=== PATIENT | female | born 1970 | race Caucasian/White ===

== ENCOUNTER 2021-10-26 09:28 | Emergency (ER) | payer MEDICAID, SELFPAY ==
[2021-10-26 09:31] VITALS: BP 107/86; PULSE 96; RESP 18; TEMP 36.8; O2SAT 99
[2021-10-26 10:16] LABS: Abs Immature Grans 0.01 10^3/uL (0.0-0.06); Absolute Basophil Count 0.01 10^3/uL (0.0-0.2); Absolute Eosinophil Count 0.03 10^3/uL (0.0-0.7); Absolute Lymphocyte Count 0.51 10^3/uL (1.2-3.4); Absolute Monocyte Count 0.43 10^3/uL (0.1-0.8); Absolute Neutrophil Count 4.23 10^3/uL (1.2-6.7); Basophils % 0.2; Eosinophils % 0.6; HCT 39.7 % (36.0-46.0); HGB 13.4 g/dL (11.2-15.7); Immature Grans % 0.2; Lymphocytes % 9.8; MCH 30.5 pg (27.0-33.0); MCHC 33.8 % (32.0-36.0); MCV 90 fL (80-95); MPV 11.1 fL (8.0-11.0); Monocytes % 8.2; Platelet Count 155 10^3/uL (130-400); RDW 12.4 % (11.7-14.6); RDW-SD 40.8 fL; WBC 5.22 10^3/uL (4.4-10.8)
[2021-10-26 10:31] LABS: ALT 24 U/L (14-59); AST 18 U/L (15-37); Albumin 3.6 g/dL (3.4-5.0); Alkaline Phosphatase 51 U/L (46-116); Anion Gap 5.9 mmol/L (3-11); BUN 9 mg/dL (7-18); Bilirubin, Total 0.6 mg/dL (0.2-1.0); CO2 27.1 mmol/L (21.0-32.0); CREATININE 0.8 mg/dL (0.55-1.02); Calcium 8.5 mg/dL (8.5-10.1); Chloride 104 mmol/L (98-107); Glucose 116 mg/dL (74-106); Potassium 3.8 mmol/L (3.5-5.1); Sodium 137 mmol/L (136-145); Total Protein 6.9 g/dL (6.4-8.2)
--- NOTE | 2021-10-26 10:36 | W.ED.GENAD ---
Discharge Plan Disposition Patient Disposition: HOME Condition: Stable Discharge Details Clinical Impression: Rash Primary Care Provider: DESTINI RAO ED Provider: Yuly Gonzales Home Meds and New Rx's Prescriptions: New doxycycline hyclate 100 mg tablet 100 mg PO BID 10 Days Qty: 20 0RF Discharge Instructions Instructions: Acute Rash (ED) Additional Instructions: I suspect this is an erythema migrans rash consistent with Lyme infection, however your Lyme results likely will be back for 72 hours We will notify you regarding the results if it is positive you have been prescribed doxycycline which will treat both for a bacterial cellulitis and erythema migrans rash Please return should you have new or worsening complaints Referrals: DESTINI RAO, MATERIAL INSPECTOR [Primary Care Provider] - Discharge Data Discharge Date/Time-TO BE ENTERED AT DEPARTURE: 10/26/21 11:06 Medical Decision Making Patient has what appears to be an erythema migrans rash, however cannot exclude cellulitis No evidence of shingles clinically Will place on doxycycline empirically which will treat both cellulitis and Lyme disease Tick panel pending Afebrile and nontoxic in appearance Will take ibuprofen and Tylenol for pain Return precautions discussed and patient expressed understanding Medical Records Medical records reviewed: Yes I reviewed the patient's medical records. Lab Data Lab results reviewed: Yes I reviewed the patient's lab results. HPI General Date/Time Provider Initiated Documentation: 10/26/21 09:40. HPI Narrative: This 51-year-old female presents with report of rash on back that began on . Denies known insect bite. Denies known tick bites. pt reports chills without fever.. States the site is tender. States it has evolved in the past 24 hours to include a ring around the site and is itchy surrounding the lesion. Sensitive to the touch reportedly. Denies history of similar symptoms in the past. Related Data Home Medications Medication Instructions Recorded Confirmed doxycycline hyclate 100 mg tablet 100 mg PO BID 10 days #20 tabs 10/26/21 Previous Rx's Medication Instructions Recorded doxycycline hyclate 100 mg tablet 100 mg PO BID 10 days #20 tabs 10/26/21 Allergies Allergy/AdvReac Type Severity Reaction Status Date / Time No Known Allergies Allergy Unverified 10/26/21 09:35 General Stated Complaint: Cellulitis JOSE: 4 Review of Systems All systems reviewed & are unremarkable except as noted in HPI and below PFSH All Active Problems (Updated 10/26/21 @ 10:44 by DENISA Varela) Rash (Acute) Social History Smoking/Tobacco Use Status: Never Smoking risk assessment performed?: Yes Alcohol Intake: never Drug use: Never Substance use type: does not use Do you feel safe at home: Yes Do you feel safe in your relationship?: Yes Exam Const General: cooperative, comfortable and no acute distress HENMT Head: normal to inspection Chest Chest: normal inspection of the chest Resp Effort & Inspection: normal respiratory effort Cardio Rate: regular rate Skin Full body images: 1. Bull's-eye lesion noted with central vesicle, tenderness to palpation, no crepitus, no drainage, no fluctuance, no lymphangitis Neuro General: patient alert and patient oriented x3 Course Vital Signs Vital signs: Vital Signs Temperature 36.8 C 10/26/21 09:31 Pulse 96 H 10/26/21 09:31 Respiratory Rate 18 10/26/21 09:31 Blood Pressure 107/86 10/26/21 09:31 Pulse Oximetry 99 10/26/21 09:31 Temperature 36.8 C 10/26/21 09:31 Temperature Source Temporal Artery Scan 10/26/21 09:31 Pulse 96 H 10/26/21 09:31 Respiratory Rate 18 10/26/21 09:31 Respiratory Effort 10/26/21 09:35 Blood Pressure 107/86 10/26/21 09:31 Blood Pressure Position Sitting 10/26/21 09:31 Pulse Oximetry 99 10/26/21 09:31 Oxygen Delivery Method Room Air 10/26/21 09:31 Oxygen Flow Rate 0 10/26/21 09:31 Pain Level 2 10/26/21 09:31 Lab/Test Results Lab/Test Results: Laboratory Tests Range/Units 10/26/21 10/26/21 10:05 10:05 WBC (4.4-10.8) 10^3/uL 5.22 RBC (3.93-5.22) 10^6/uL 4.40 Hgb (11.2-15.7) g/dL 13.4 Hct (36.0-46.0) % 39.7 MCV (80-95) fL 90 MCH (27.0-33.0) pg 30.5 MCHC (32.0-36.0) % 33.8 RDW (11.7-14.6) % 12.4 Plt Count (130-400) 10^3/uL 155 MPV (8.0-11.0) fL 11.1 H Immature Gran % 0.2 Neutrophils % 81.0 Lymphocytes % 9.8 Monocytes % 8.2 Eosinophils % 0.6 Basophils % 0.2 Nucleated RBC % (0.0-0.3) % 0.0 Absolute Neutrophils (1.2-6.7) 10^3/uL 4.23 Absolute Lymphocytes (1.2-3.4) 10^3/uL 0.51 L Absolute Monocytes (0.1-0.8) 10^3/uL 0.43 Absolute Eosinophils (0.0-0.7) 10^3/uL 0.03 Absolute Basophils (0.0-0.2) 10^3/uL 0.01 Sodium (136-145) mmol/L 137 Potassium (3.5-5.1) mmol/L 3.8 Chloride (98-107) mmol/L 104 Carbon Dioxide (21.0-32.0) mmol/L 27.1 Anion Gap (3-11) mmol/L 5.9 BUN (7-18) mg/dL 9 Creatinine (0.55-1.02) mg/dL 0.8 Estimated GFR/1.73 m2 (mL/min/1.73m2) >= 60.00 Glucose (74-106) mg/dL 116 H Calcium (8.5-10.1) mg/dL 8.5 Total Bilirubin (0.2-1.0) mg/dL 0.6 AST (15-37) U/L 18 ALT (14-59) U/L 24 Alkaline Phosphatase (46-116) U/L 51 Total Protein (6.4-8.2) g/dL 6.9 Albumin (3.4-5.0) g/dL 3.6
[2021-10-28 11:58] LABS: Lyme Ab w Rflx to Lyme Confirm Negative (Negative)
[2021-11-01 17:03] LABS: Anaplasma phagocytophilum Negative (Negative); B. miyamotoi PCR Negative (Negative); Babesia divergens/MO-1 Negative (Negative); Babesia duncani Negative (Negative); Babesia microti Negative (Negative); Ehrlichia chaffeensis Negative (Negative); Ehrlichia ewingii/canis Negative (Negative); Ehrlichia muris eauclairensis Negative (Negative)
== END 2021-10-26 11:06 | disposition home or self-care (01) ==
PROVIDERS: Emergency Provider Physician Assistant; PCP Nurse Practitioner Family
DX: R21 Rash and other nonspecific skin eruption (principal); L98.9 Disorder of the skin and subcutaneous tissue, unspecified
CPT/HCPCS: 36415; 80053; 87798; 99283; 85025; 86618; 99284

== ENCOUNTER 2022-01-05 17:33 | Emergency (ER) | payer MEDICAID, SELFPAY ==
[2022-01-05 18:32] VITALS: BP 118/69; PULSE 78; RESP 22; TEMP 36.9; O2SAT 100
--- NOTE | 2022-01-05 19:00 | DI.RAD_ITS ---
Exam(s) XR LUMBAR SPINE COMPLETE EXAM: XR LUMBAR SPINE COMPLETE CLINICAL HISTORY: lower back pain. TECHNIQUE: 2D digital imaging was performed. Five views. COMPARISON: No exams were available for comparison FINDINGS: BONES: No fracture or destructive lesion. Vertebral body heights are maintained. No facet hypertroph y identified. DISKS: [id number] narrowing of the L5-S1 disc space. Minimal endplate osteophytes. Interverte bral disc spaces are maintained. ALIGNMENT: Lumbar spinal alignment is within normal limits. SOFT TISSUE: Normal. IMPRESSION: Degenerative changes L5-S1. DATA REPOSITORY: RADIATION DOSE DELIVERED:
--- NOTE | 2022-01-05 19:00 | DI.RAD_ITS ---
Exam(s) XR HIP LT COMPLETE AP PELVIS EXAM: XR HIP LT COMPLETE AP PELVIS CLINICAL HISTORY: left hip pain. TECHNIQUE: 2D digital imaging was performed. Two views. COMPARISON: No exams were available for comparison FINDINGS: BONES: No acute fracture is present. No bony destructive lesion is seen. JOINTS: No dislocation present. SOFT TISSUE: Normal. IMPRESSION: Unremarkable radiographs of the left hip. Unremarkable radiographs of the pelvis DATA REPOSITORY: RADIATION DOSE DELIVERED:
--- NOTE | 2022-01-05 19:07 | ED.GENADUL_ITS ---
Discharge Plan Disposition Patient Disposition: STILL A PATIENT Condition: Stable Discharge Details Clinical Impression: Lumbar back pain, Hip pain, left Primary Care Provider: DESTINI RAO ED Provider: Juni Page Home Meds and New Rx's Prescriptions: New prednisone 20 mg tablet 60 mg PO DAILY 4 Days Qty: 12 0RF diazepam [Valium] 5 mg tablet 5 mg PO TID PRN (Reason: muscle spasm) Qty: 14 0RF Discharge Instructions Instructions: Hip Pain (ED) Additional Instructions: if pain continues this week follow up with your primary care provider if you feel more ill, have fevers or severe worsening pain return to the emergency department for reevaluation you can take tylenol and ibuprofen, follow dosing instructions on packaging Medical Decision Making 51 yo female who denies chronic medical problems comes in with left hip pain. She states last week she had lower back pain after she was chopping wood and denies any falls or trauma. The pain in her back subsided but then she developed left hip pain that has been persistent. no fevers, chills, difficulty urinating. She has no lower back pain now. She localizes the pain to the left lateral hip. She can move the hip though with pain. No erythema, warmth of the hip. Normal distal senation , normal pulses and sensation. Suspect this could be bursitis vs arthritis vs muscle spasm, will treat with valium, prednisone and toradol and obtain xrays to further evaluate pt signed out to oncoming provider pending xrays and reassessment after being medicated Differential Diagnosis Differential Diagnosis: bursitis, arthritis, pathological fracture HPI General Mode of arrival: ambulatory . Date/Time Provider Initiated Documentation: 01/05/22 18:58 . Limitations to Documentation: no limitations . Information obtained by: patient . History of Present Illness 51 year old F presents to the emergency department with the chief complaint of left hip pain, described as moderate, Patient started experiencing this day(s) (3) and it has been constant. Rest improves symptom(s), Movement worsens symptoms . Patient notes no other symptoms.. Patient did receive the following treatments prior to arrival, none Related Data Home Medications Medication Instructions Recorded Confirmed diazepam 5 mg tablet (Valium) 5 mg PO TID PRN muscle spasm #14 01/05/22 tabs prednisone 20 mg tablet 60 mg PO DAILY 4 days #12 tabs 01/05/22 Previous Rx's Medication Instructions Recorded diazepam 5 mg tablet (Valium) 5 mg PO TID PRN muscle spasm #14 01/05/22 tabs prednisone 20 mg tablet 60 mg PO DAILY 4 days #12 tabs 01/05/22 Allergies Allergy/AdvReac Type Severity Reaction Status Date / Time No Known Allergies Allergy Unverified 10/26/21 09:35 General Stated Complaint: Orthopedic JOSE: 3 Review of Systems All systems reviewed & are unremarkable except as noted in HPI and below Constitutional Constitutional: Denies chills, Denies fever(s) and Denies weakness Cardiovascular Cardiovascular: Denies chest pain and Denies dyspnea Respiratory Respiratory: Denies cough and Denies dyspnea Gastrointestinal Gastrointestinal: Denies abdominal pain, Denies nausea and Denies vomiting Integumentary/Breasts Skin/Breast: Denies rash Neurologic Neurologic: Denies weakness PFSH All Active Problems (Updated 01/05/22 @ 19:42 by Juni Page MD) Lumbar back pain (Acute) Hip pain, left (Acute) Social History Smoking/Tobacco Use Status: Never Smoking risk assessment performed?: Yes Alcohol Intake: never Drug use: Never Substance use type: does not use Do you feel safe at home: Yes Do you feel safe in your relationship?: Yes Exam Const General: no acute distress Orientation: alert HENMT Head: normal to inspection Ears: external ears normal General nose exam: external nose normal Mouth: moist mucous membranes Eyes General: appearance normal, both eyes and all related structures Neck Neck: normal visual inspection Resp Effort & Inspection: normal respiratory effort and able to speak in complete s entences Cardio Rate: regular rate GI Palpation: soft Skin General skin exam: no rashes or lesions noted Neuro General: patient alert and patient oriented x3 Extrem General: normal to inspection Psych Mental Status: mental status grossly normal Course Vital Signs Vital signs: Vital Signs Temperature 36.9 C 01/05/22 18:32 Pulse 78 01/05/22 18:32 Respiratory Rate 22 01/05/22 18:32 Blood Pressure 118/69 01/05/22 18:32 Pulse Oximetry 100 01/05/22 18:32 Temperature 36.9 C 01/05/22 18:32 Pulse 78 01/05/22 18:32 Respiratory Rate 22 01/05/22 18:32 Blood Pressure 118/69 01/05/22 18:32 Blood Pressure Position Supine 01/05/22 18:32 Pulse Oximetry 100 01/05/22 18:32 Oxygen Delivery Method Room Air 01/05/22 18:32 Oxygen Flow Rate 0 01/05/22 18:32 Pain Level 8 01/05/22 18:32 Sign Out Sign Out Data: Sign Out Comment: nontraumatic lower back pain that has moved to the left hip, pending xrays and reassessment after valium, prednisone, toradol Last updated by Juni Page MD at 01/05/22 19:39
[2022-01-05] MEDS: predniSONE 20 MG TAB 60 MG PO (19:25)
[2022-01-05] MEDS: Ketorolac 15 MG/ML VIAL IM (19:27)
[2022-01-05] MEDS: diazePAM 10 MG/2 ML SYR 5 MG IM (19:35)
--- NOTE | 2022-01-05 20:05 | DI.VRAD_ITS ---
PROCEDURE INFORMATION: Exam: XR Lumbosacral Spine Exam date and time: 01/05/2022 7:40 PM Age: 51 years old Clinical indication: Low back pain TECHNIQUE: Imaging protocol: Radiologic exam of the lumbosacral spine. Views: 4 or 5 views. COMPARISON: No relevant prior studies available. FINDINGS: Bones/joints: No acute fracture. Normal alignment. Foraminal stenosis at L5-S1 Soft tissues: Unremarkable. IMPRESSION: No acute findings. Foraminal stenosis at L5-S1 Dictated and Authenticated by: Leonel Mcclain MD. Ordering:TIM Alfredo MD
--- NOTE | 2022-01-05 20:05 | DI.VRAD_ITS ---
PROCEDURE INFORMATION: Exam: XR Left Hip Exam date and time: 01/05/2022 7:44 PM Age: 51 years old Clinical indication: Hip pain; Left hip TECHNIQUE: Imaging protocol: Radiologic exam of the Left hip. Views: 2 or 3 views hip with pelvis when performed. COMPARISON: CR XR LUMBAR SPINE COMPLETE 01/05/2022 7:40 PM FINDINGS: Bones/joints: Mild degenerative changes in the left hip. No acute fracture. Soft tissues: Unremarkable. IMPRESSION: No acute findings. Mild degenerative changes in the left hip Dictated and Authenticated by: Leonel Mcclain MD. Ordering:TIM Alfredo MD
--- NOTE | 2022-01-05 20:25 | W.EDPROG ---
Date of service: 01/05/22 Time of Service: 20:30 Medical Decision Making 2029 --please see Dr. Page's note for initial presentation, exam and plan. Case endorsed to follow-up on imaging and if negative will plan for discharge to home. 51-year-old female plan presents with left-sided lower back and now left hip pain for the past 2 days after chopping wood. Pain is worse with movement, specifically bending and ambulating. She states her pain was in her left lower back which has since improved and is now on her left hip. She denies any bowel or bladder incontinence or saddle anesthesia. She does admit to radiation of pain to her left thigh with pressure-like tingling. She has been taking 800 mg of ibuprofen without significant relief. Imaging reviewed and negative. Patient reassessed and her pain is not significantly improved but she feels comfortable going home. She is moving all extremities. She has no focal deficits. She has no complaint of cauda equina symptoms. Discussed that her symptom presentation can be secondary to muscle strain, radiculopathy, sciatica, arthritis or less likely disc herniation. History and presentation does not appear consistent with cauda equina syndrome. Advised to alternate Tylenol and Motrin, ice and heat, take steroids until finished and Valium as needed. Advised to call her PCP this week for follow-up and referral for physical therapy or orthopedics if needed. Usual and customary return precautions given prior to discharge. Medical Records Medical records reviewed: Yes I reviewed the patient's medical records. Imaging Data Radiologic Study: Radiologist's impression: XR Left Hip Exam date and time: 01/05/2022 7:44 PM Age: 51 years old Clinical indication: Hip pain; Left hip TECHNIQUE: Imaging protocol: Radiologic exam of the Left hip. Views: 2 or 3 views hip with pelvis when performed. COMPARISON: CR XR LUMBAR SPINE COMPLETE 01/05/2022 7:40 PM FINDINGS: Bones/joints:? Mild degenerative changes in the left hip. No acute fracture. Soft tissues: Unremarkable. IMPRESSION: No acute findings. Mild degenerative changes in the left hip XR Lumbosacral Spine Exam date and time: 01/05/2022 7:40 PM Age: 51 years old Clinical indication: Low back pain TECHNIQUE: Imaging protocol: Radiologic exam of the lumbosacral spine. Views: 4 or 5 views. COMPARISON: No relevant prior studies available. FINDINGS: Bones/joints: No acute fracture. Normal alignment.? Foraminal stenosis at L5-S1 Soft tissues: Unremarkable. IMPRESSION: No acute findings. Foraminal stenosis at L5-S1 Exam Const General: cooperative, healthy appearing and no acute distress Orientation: alert, awake and oriented x3 HENMT Head: normal to inspection Mouth: oral mucosae normal Eyes General: appearance normal, both eyes and all related structures Neck Neck: normal visual inspection Resp Effort & Inspection: normal respiratory effort and able to speak in complete sentences Cardio Rate: regular rate Back/Spine/Pelvis Thoracic/Lumbar Spine: thoracic and lumbar spine normal to inspection, straight leg raise negative bilaterally and No lumbar spinal tenderness Skin General skin exam: no rashes or lesions noted Neuro General: patient alert, patient awake and patient oriented x3 Motor: muscle tone normal throughout and strength 5/5 throughout Extrem General: normal to inspection, full ROM and no edema Other: Bilateral DP/PT pulses intact. Psych Appearance: grossly normal Affect: normal affect Sign Out Sign Out Data: Sign Out Comment: nontraumatic lower back pain that has moved to the left hip, pending xrays and reassessment after valium, prednisone, toradol Last updated by Juni Page MD at 01/05/22 19:39 Discharge Plan Disposition Patient Disposition: HOME Condition: Stable Discharge Details Clinical Impression: Lumbar back pain, Hip pain, left Primary Care Provider: DESTINI RAO ED Provider: Marcella Eng Home Meds and New Rx's Prescriptions: New prednisone 20 mg tablet 60 mg PO DAILY 4 Days Qty: 12 0RF diazepam [Valium] 5 mg tablet 5 mg PO TID PRN (Reason: muscle spasm) Qty: 14 0RF Discharge Instructions Instructions: Low Back Strain (ED), Hip Pain (ED) Additional Instructions: Your x-rays today are reassuring and show no evidence of acute concerning or significant findings. Alternate ice and heat to the affected area(s) several times daily for 20 minutes at a time. Alternate tylenol and motrin as needed and directed for pain. You were given a prescription for prednisone to take as directed until finished. You are also given a prescription for Valium to take as needed and directed for muscle spasm and pain. Call your primary care doctor's office tomorrow to schedule follow-up appointment for reevaluation this week and for referral to orthopedics or physical therapy if needed. Return immediately to the emergency department if you develop any worsening or new concerning symptoms such as worsening pain, bowel or bladder incontinence, difficulty ambulating or any other concerns. Discharge Data Discharge Date/Time-TO BE ENTERED AT DEPARTURE: 01/05/22 20:59 Discharge Physician: Marcella Eng
[2022-01-05 21:00] VITALS: BP 113/71; PULSE 83; RESP 16; O2SAT 96
== END 2022-01-05 20:59 | disposition home or self-care (01) ==
PROVIDERS: Emergency Provider Physician Assistant; PCP Nurse Practitioner Family
DX: M25.552 Pain in left hip (principal); M54.50 Low back pain, unspecified
CPT/HCPCS: 96372; 99284; 72110; 73502; J1885; J3360; J7512

== ENCOUNTER 2022-05-05 12:09 | Outpatient (REF) | payer MEDICAID, SELFPAY ==
[2022-05-05 15:03] LABS: Bacteria Negative HPF (Negative); C & S Indicated? C&S Done As Ordered; Casts Negative LPF (Negative); Crystals Negative HPF (Negative); Epithelial Cells Rare HPF (Negative); Mucus Negative (Negative); RBC 0-2 HPF (0-2); WBC Negative HPF (0-5)
== END 2022-05-05 12:10 | disposition home or self-care (01) ==
LOC: LBN 12:09
PROVIDERS: PCP Nurse Practitioner Family; Visit Provider Nurse Practitioner Family
DX: R35.0 Frequency of micturition (principal)
CPT/HCPCS: 81015; 87086

== ENCOUNTER 2022-05-09 17:59 | Outpatient (REF) | payer MEDICAID, SELFPAY ==
[2022-05-09 14:27] LABS: Abs Immature Grans 0.01 10^3/uL (0.0-0.06); Absolute Basophil Count 0.05 10^3/uL (0.0-0.2); Absolute Eosinophil Count 0.12 10^3/uL (0.0-0.7); Absolute Lymphocyte Count 1.32 10^3/uL (1.2-3.4); Absolute Monocyte Count 0.46 10^3/uL (0.1-0.8); Absolute Neutrophil Count 3.54 10^3/uL (1.2-6.7); Basophils % 0.9; Eosinophils % 2.2; HCT 41.9 % (36.0-46.0); Immature Grans % 0.2; MCH 30.4 pg (27.0-33.0); MCHC 33.4 % (32.0-36.0); MCV 91 fL (80-95); Monocytes % 8.4; Neutrophils % 64.3; Platelet Count 209 10^3/uL (130-400); RDW 12.2 % (11.7-14.6); RDW-SD 40.7 fL
[2022-05-09 14:30] LABS: Anion Gap 6.7 mmol/L (3-11); BUN 11 mg/dL (7-18); CO2 29.3 mmol/L (21.0-32.0); CREATININE 0.7 mg/dL (0.55-1.02); Calcium 9.3 mg/dL (8.5-10.1); Chloride 104 mmol/L (98-107); Estimated GFR 105.95 (mL/min/1.73m2); Glucose 87 mg/dL (74-106); Potassium 4.5 mmol/L (3.5-5.1); Sodium 140 mmol/L (136-145)
[2022-05-10 14:30] LABS: Chlamydia Result Negative (Negative); GC Result Negative (Negative)
== END 2022-05-09 18:00 | disposition home or self-care (01) ==
LOC: LBN 17:59
PROVIDERS: PCP Nurse Practitioner Family; Visit Provider Physician Assistant Medical
DX: R30.0 Dysuria (principal); N89.8 Other specified noninflammatory disorders of vagina; R35.0 Frequency of micturition
CPT/HCPCS: 80048; 87491; 87591; 85025; 87086; 87480; 87510; 87660

== ENCOUNTER 2022-06-02 13:43 | Outpatient (REF) | payer MEDICAID, SELFPAY ==
[2022-06-03 10:17] LABS: Lyme Ab w Rflx to Lyme Confirm Negative (Negative)
== END 2022-06-02 13:44 | disposition home or self-care (01) ==
LOC: NCHCN 13:43
PROVIDERS: PCP Nurse Practitioner Family; Visit Provider Nurse Practitioner Family
DX: M25.59 Pain in other specified joint (principal); Z11.8 Encounter for screening for other infectious and parasitic diseases
CPT/HCPCS: 86618

== ENCOUNTER 2022-06-30 16:13 | Outpatient (REF) | payer MEDICAID, SELFPAY | END 2022-06-30 16:14 | disposition home or self-care (01) | LOC: NCHCN 16:13 | PROVIDERS: PCP Nurse Practitioner Family; Visit Provider Nurse Practitioner Family | DX: R35.0 Frequency of micturition (principal) | CPT/HCPCS: 87086 ==

== ENCOUNTER 2022-07-08 01:54 | Outpatient (CLI) | payer MEDICAID, SELFPAY ==
--- NOTE | 2022-07-08 07:00 | DI.US_ITS ---
Exam(s) US RENAL EXAM: US RENAL CLINICAL HISTORY: URINARY FREQUENCY, R35.0. TECHNIQUE: López scale, color and spectral Doppler were used. COMPARISON: No exams were available for comparison FINDINGS: Renal size in cm: Right: 11.6 left: 10.6 Echogenicity: Normal Hydronephrosis: No Cyst or mass: No Nephrolithiasis: No Bladder:Not well distended. Both ureteral jets visualized. Prevoid vol:22 Postvoid vol:4 IMPRESSION: Urinary bladder not well distended for pre void bladder volume. Wall not well evaluated. DATA REPOSITORY:
== END 2022-07-08 02:14 ==
LOC: DI 01:55
PROVIDERS: PCP Nurse Practitioner Family; Visit Provider Nurse Practitioner Family
DX: R35.0 Frequency of micturition (principal)
CPT/HCPCS: 76770

== ENCOUNTER 2022-07-11 00:47 | Outpatient (CLI) | payer MEDICAID, SELFPAY ==
--- NOTE | 2022-07-11 | DI.MAMMO_ITS ---
Exam(s) MAMMO SCREENING EXAM: MAMMO SCREENING CLINICAL HISTORY: SCREENING FOR BREAST CANCER Z12.39. TECHNIQUE: Bilateral full field digital CC and MLO mammographic images were obtained with 3D tomosyn thesis and utilizing computer aided detection (CAD). COMPARISON: Prior outside mammograms were reviewed. FINDINGS: Fibroglandular tissue pattern is again noted be moderately dense, this decreasing the sensitivity of the mammogram for finding hidden underlying lesions. No new findings in the immediate vicinity of the biopsy marker clip in the right breast. There are no new spiculated masses nor malignant appearing microcalcification groups in either breast . There is no significant architectural distortion nor skin thickening-retraction. IMPRESSION: No radiographic evidence of malignancy. BI-RADS Category 2 - Benign Findings Breast Density - Category C - Heterogeneously dense Breast density Category C or D implies that the patient has dense breast tissue. Dense breast tissue can make it harder to find cancer on a mammogram. Dense breast tissue is also associated with an incr eased risk of breast cancer. This information about the result of the mammogram report was provided to the patient to raise their awareness. Use this report when you speak with the patient about their risks for breast cancer, which includes their family history. At that time, you may recommend additional screening tests (Ultrasoun d or MRI) as these tests may add significant information. A negative radiographic report should not delay biopsy if a dominant or clinically suspicious mass is present. Up to ten percent of cancers are not identified on mammography. A negative report may reinforce clinical impression. Adenosis and dense breasts may obscure an underlying neoplasm. False positive reports average 6 to 10%. Patient will receive a letter notifying them of these results.
== END 2022-07-11 01:07 ==
LOC: DI 00:47
PROVIDERS: PCP Nurse Practitioner Family; Visit Provider Nurse Practitioner Family
DX: Z12.31 Encounter for screening mammogram for malignant neoplasm of breast (principal)
CPT/HCPCS: 77063; 77067

== ENCOUNTER 2022-10-15 01:41 | Outpatient (CLI) | payer MEDICAID, SELFPAY ==
--- NOTE | 2022-10-15 07:45 | DI.MRI_ITS ---
Exam(s) MR LUMBAR SPINE WO EXAM: MR LUMBAR SPINE WO CLINICAL HISTORY: LUMBAR BACK PAIN, M54.50; LUMBAR DISC DEGENERATION AT L5-S1 ON XR, M51.36. TECHNIQUE: Multiplanar multisequence MRI of the Lumbar spine was performed. COMPARISON: CR,XR XR LUMBAR SPINE COMPLETE from 01/05/2022 FINDINGS: Conus medullaris is at normal level. There is no evidence of conus mass nor subjacent clumping of in trathecal nerve roots to suggest arachnoiditis. The distal thecal sac appears unremarkable.Small Tar tomy intra sacral cyst seen on the right side at S2 level. Not clinically relevant. Bones:There are no fractures nor ominous osseous lesions in the lumbar vertebral bodies and visualize d sacrum. With respect to the individual levels... T12-L1: Unremarkable L1-2: Normal disc height and signal. No disc herniation nor central canal stenosis.No foraminal steno sis L2-3: Normal disc height. However, there is a lateral left disc protrusion which extends posteriorly 3 mm and is 12 mm wide, this in the exiting left neural foramen at and extending above the level of t he disc space up to the left pedicle of L2. There does not appear to be prominent foraminal stenosis at this level although this disc protrusion does slightly impinge upon the left side of the thecal s ac at this level. Central canal dimensions are within normal limits. Exiting right neural foramen a ppears unremarkable.There is no significant facet arthropathy at this level. L3-4: Normal disc height. At this level there is lateral left annular bulging in the floor of the ex iting left neural foramen. There is, however, no prominent disc herniation at this level. Central c anal dimensions are within normal limits. Exiting right neural foramen unremarkable. No significant facet arthropathy evident.. L4-5: Normal disc height. However, there is a central subligamentous disc protrusion which extends p osteriorly 2 mm and is approximately 9 mm wide. This slightly compresses the thecal sac. There is m ild central spinal canal stenosis at this level. There is no disc herniation within the exiting neur al foramina on either side. No foraminal stenosis. No significant facet arthropathy. L5-S1: This level exhibits moderate uniform disc space narrowing. There is posterior bony ridging an d annular bulging which contacts the anterior aspect thecal sac. There is no prominent asymmetric di sc herniation at this level. Central canal dimensions are lower normal. Exiting right neural forame n appears unremarkable. There is mild foraminal stenosis on the left side due to the vertical height loss and annular bulging into the floor of the exiting left neural foramen at this level. Similar f indings are not seen in the opposite-right exiting neural foramen. Soft tissues: paraspinal soft tissues appear unremarkable. IMPRESSION: 1. There is a lateral left disc protrusion at L2-3 level, as described above. 2. There is a central subligamentous disc protrusion at L4-5 level as described above. There is mild central spinal canal stenosis at this level. There is no foraminal stenosis at this level. 3. There is chronic disc space narrowing at L5-S1 level with asymmetric mild-moderate unilateral left foraminal stenosis at this level. Other findings as above. DATA REPOSITORY:
== END 2022-10-15 02:01 ==
LOC: DI 01:41
PROVIDERS: PCP Nurse Practitioner Family; Visit Provider Nurse Practitioner Family
DX: M51.37 Other intervertebral disc degeneration, lumbosacral region (principal); M54.59 Other low back pain; M51.26 Other intervertebral disc displacement, lumbar region
CPT/HCPCS: 72148

== ENCOUNTER 2022-11-17 15:09 | Outpatient (REF) | payer MEDICAID, SELFPAY ==
[2022-11-17 15:23] LABS: Calculated LDL 144 mg/dL (<100); Cholesterol 237 mg/dL (<200); HDL Cholesterol 72 mg/dL (40-60); Triglyceride 105 mg/dL (<150)
== END 2022-11-17 15:10 | disposition home or self-care (01) ==
LOC: NCHCN 15:09
PROVIDERS: PCP Nurse Practitioner Family; Visit Provider Nurse Practitioner Family
DX: E78.00 Pure hypercholesterolemia, unspecified (principal)
CPT/HCPCS: 80061

== ENCOUNTER 2022-12-09 11:40 | Outpatient (REF) | payer MEDICAID, SELFPAY ==
[2022-12-09 12:18] LABS: Bilirubin Negative (Negative); Blood Trace-intact (Negative); Clarity Clear (Clear); Glucose Negative (Negative); Ketones Negative (Negative); Leukocyte Esterase Small (Negative); Nitrite Negative (Negative); Urobilinogen 0.2 mg/dL (Up to 0.2); pH 6.5 (5-8)
[2022-12-09 12:28] LABS: Bacteria Rare HPF (Negative); C & S Indicated? C&S Done As Ordered; Casts Negative LPF (Negative); Crystals Negative HPF (Negative); Epithelial Cells Few HPF (Negative); Mucus Negative (Negative); RBC 0-2 HPF (0-2); WBC 20-50 HPF (0-5)
== END 2022-12-09 11:41 | disposition home or self-care (01) ==
LOC: LBN 11:40
PROVIDERS: PCP Nurse Practitioner Family; Visit Provider Nurse Practitioner Gerontology
DX: R35.0 Frequency of micturition (principal); R82.998 Other abnormal findings in urine
CPT/HCPCS: 87077; 81003; 81015; 87086; 87186

== ENCOUNTER 2024-01-11 01:10 | Outpatient (CLI) | payer MEDICAID, SELFPAY ==
--- NOTE | 2024-01-11 | DI.MAMMO_ITS ---
Exam(s) MAMMO SCREENING EXAM: MAMMO SCREENING CLINICAL HISTORY: ROUTINE SCREENING MAMMO. TECHNIQUE: Bilateral full field digital CC and MLO mammographic images were obtained with 3D tomosyn thesis and utilizing computer aided detection (CAD). COMPARISON: Prior mammograms were reviewed. FINDINGS: Fibroglandular tissue pattern is moderately dense. In the left breast there is asymmetric nodular density seen on the MLO view located superiorly approx imately 5 cm in from the nipple and measuring 1.5 x 1 point 0 cm. Requires further imaging spot comp ression and ultrasound. In the right breast there are no new findings in the immediate vicinity of the biopsy marker clip. On the MLO view there is a 1 cm area of asymmetric density which appears more prominent than on prior mammograms, this located 2.5 cm in from the nipple. There are no malignant-appearing microcalcification groups in either breast There is no significant architectural distortion nor skin thickening-retraction. IMPRESSION: Moderately dense fibroglandular tissue. Asymmetric densities-possible nodules bilaterally as describ ed above. Bilateral spot compression MLO views are recommended as well as bilateral breast ultrasoun d. BI-RADS Category 0 - Incomplete: Need additional imaging evaluation Breast Density - Category C - Heterogeneously dense Breast density Category C or D implies that the patient has dense breast tissue. Dense breast tissue can make it harder to find cancer on a mammogram. Dense breast tissue is also associated with an incr eased risk of breast cancer. This information about the result of the mammogram report was provided to the patient to raise their awareness. Use this report when you speak with the patient about their risks for breast cancer, which includes their family history. At that time, you may recommend additional screening tests (Ultrasoun d or MRI) as these tests may add significant information. A negative radiographic report should not delay biopsy if a dominant or clinically suspicious mass is present. Up to ten percent of cancers are not identified on mammography. A negative report may reinforce clinical impression. Adenosis and dense breasts may obscure an underlying neoplasm. False positive reports average 6 to 10%. Patient will receive a letter notifying them of these results.
== END 2024-01-11 01:30 ==
LOC: DI 01:10
PROVIDERS: PCP Nurse Practitioner Family; Visit Provider Nurse Practitioner Family
DX: Z12.31 Encounter for screening mammogram for malignant neoplasm of breast (principal)
CPT/HCPCS: 77063; 77067

== ENCOUNTER 2024-01-21 01:02 | Outpatient (CLI) | payer MEDICAID, SELFPAY ==
--- NOTE | 2024-01-21 09:10 | DI.US_ITS ---
Exam(s) US BREAST RT LIMITED US BREAST LT LIMITED MG MAMMO SCREEN CALL BACK BI EXAM: MG MAMMO SCREEN CALL BACK BI and bilateral U/S breast limited CLINICAL HISTORY: ASYMMETRIC DENSITIES BILAT BREASTS-POSSIBLE NODULES R92.8 ABNL MAMMO. TECHNIQUE: Craniocaudal and mediolateral oblique Full Field Digital Mammography views of the bilater al breast with Computer Aided Diagnosis followed by Tomosynthesis and bilateral breast ultrasound. COMPARISON: Comparison is made with prior examinations. FINDINGS: Mammography/Tomosynthesis: Masses/Architectural Distortion: In the right breast, the area in the infra areolar region is less co ncerning on the additional views. In the left breast, the nodular density in the upper outer quadran t persists. It is well-circumscribed. No areas of architectural distortion are seen. Microcalcifictions: No suspicious pleomorphic-type are seen. Skin Thickening/Nipple Retraction: None. Bilateral limited breast US: Echotexture: Normal appearance of the glandular tissue. Shadowing: No suspicious foci. Cyst: In the right breast, no cystic or solid masses are present. Solid lesions: In the left breast, at the 1 o'clock position 3 cm from the nipple there are 2 radiall y oriented well-circumscribed hypoechoic nodules present. The larger measures 1.6 x 0.5 x 1.7 cm. T he adjacent smaller nodule measures 0.8 x 0.3 cm. There is a cluster of small cysts at the 12 o'cloc k position 3 cm from the nipple measuring 0.8 x 0.7 x 0.9 cm in aggregate. Ductal dilation: None. IMPRESSION: 1. No definite evidence of malignancy is noted at this time. 2. A six-month follow-up bilateral mammogram and limited left breast ultrasound is recommended. 3. The findings were discussed with the patient on the date of the examination. BI-RADS Category 3 - 6 month - Probably Benign Finding: Recommend follow-up imaging in 6 months Breast Density - Category C - Heterogeneously dense Breast density Category C or D implies that the patient has dense breast tissue. Dense breast tissue can make it harder to find cancer on a mammogram. Dense breast tissue is also associated with an incr eased risk of breast cancer. This information about the result of the mammogram report was provided to the patient to raise their awareness. Use this report when you speak with the patient about their risks for breast cancer, which includes their family history. At that time, you may recommend additional screening tests (Ultrasoun d or MRI) as these tests may add significant information. A negative radiographic report should not delay biopsy if a dominant or clinically suspicious mass is present. Up to ten percent of cancers are not identified on mammography. A negative report may reinforce clinical impression. Adenosis and dense breasts may obscure an underlying neoplasm. False positive reports average 6 to 10%. Patient will receive a letter notifying them of these results.
== END 2024-01-21 01:22 ==
LOC: DI 01:02
PROVIDERS: PCP Nurse Practitioner Family; Visit Provider Nurse Practitioner Family
DX: Z12.31 Encounter for screening mammogram for malignant neoplasm of breast (principal); N63.41 Unspecified lump in right breast, subareolar
CPT/HCPCS: 76642; 77063; 77067